=== PATIENT | female | born 1985 | race Caucasian/White ===

== ENCOUNTER 2018-02-25 20:09 | Emergency (ER) | payer MEDICAID ==
[~2018-02-25] VITALS: Ht 160 cm; Wt 72.6 kg
[2018-02-25 20:17] VITALS: BP_SYST 138
[2018-02-25] MEDS ORDERED: AMOXICILLIN/CLAVULANATE POTASSIUM 875 MG TABLET PO ONE (20:45)
[2018-02-25] MEDS ORDERED: HYDROcodone/ACETAMIN 5-325 MG TAB (NORCO/ VICODIN) PO ONE (20:45)
[2018-02-25 21:08] VITALS: BP_SYST 132
== END 2018-02-25 21:08 | disposition home or self-care (01) ==
LOC: SED 20:09
DX: J01.90 Acute sinusitis, unspecified (principal); R03.0 Elevated blood-pressure reading, without diagnosis of hypertension; F32.9 Major depressive disorder, single episode, unspecified
CPT/HCPCS: 81025; 99283